=== PATIENT | female | born 1940 | race Caucasian/White ===

== ENCOUNTER → 2016-03-27 | Day surgery (SDC) | payer BC ==
[~2016-03-27] MED LIST: BUPIVACAINE 0.5% 30 ML VIAL ONE; CEFAZOLIN 1 GM VIAL ONE; DEXAMETHASONE 4 MG/ML VIAL IV ONE; FENTANYL 100 MCG/2 ML VIAL IV ONE; FENTANYL 100 MCG/2 ML VIAL IV PRN; HYDROmorphone 1 MG INJECTION IV PRN; LABETALOL 20 MG/4 ML SYRINGE IV PRN; LIDOCAINE 1% 10 ML (METHYLPARABEN FREE) ONE; LIDOCAINE 100 MG PFS IV ONE; MEPERIDINE 25 MG/ML TUBEX IV PRN; METOCLOPRAMIDE 10 MG/2 ML VIAL IV ONE; MIDAZOLAM 2 MG/2 ML VIAL IV ONE; ONDANSETRON HCL 4 MG ODT TAB PO PRN; ONDANSETRON HCL 4 MG/2 ML VIAL IV ONE; ONDANSETRON HCL 4 MG/2 ML VIAL IV PRN; PROMETHAZINE 25 MG/ML VIAL IV PRN; PROPOFOL 200 MG/20 ML VIAL IV ONE; SUCCINYLCHOLINE 20 MG/1 ML INJ 10 ML MDV IV ONE; Sodium Bicarbonate (Neut) 2.4 mEq/5 ml vial INF ONE; hydrALAZINE 20 MG/ML VIAL IV PRN
--- NOTE | 2016-03-27 07:09 | SC.ANESPOS ---
Post-Anesthesia Note LOC: [facility] Calling Post-Anesthesia Assessment: Awake, Returned to Baseline, Hemodynamically Stable , Pain Control Adequate Phase I & II Recovery Complete: Yes Apparent Anesthesia Complication: No : N PACU Discharge Time: 12:00 - Vital Signs Blood Pressure: 140/62 Pulse: 78 Resp Rate: 18 O2 Sat: 96 Temp: 96.5 F - Comments Anesthesia Discharge Time Report Time 12:00
--- NOTE | 2016-03-27 07:46 | HIM.ANES ---
Anesthesia Evaluation & Plan Diagnoses: NEOPLASM OF UNCERTAIN BEHAVIOR OF LEFT BREAST (03/27/16) Consented Procedure: LEFT NEEDLE LOCALIZED LUMPECTOMY X 2 - Focused Review of Systems Cardiac History: Yes: Hx Hypertension, Hx Heart Attack (1983/), Hx Cardiac Disorders, Hx Abnormal Cholesterol/Hyperlipidemia HEENT: Yes: Cataract Removal, Hx Vision Problem, Other HEENT Problems Hx Other HEENT Surgery: RT EYE SX TO REPAIR RETINA Gastrointestinal: Yes: Hx Gastroesophageal Reflux Disease (Controlled on RX), Hx Gastrointestinal Disorders, Hx Endoscopy (2012), Hx Esophageal Dilatation ( 2012) Neurological/Musculoskeletal: No: Hx Neurological Disorders Psychological: No Hx Mental/Emotional Disorders Endocrine: Yes: Hx Diet Controlled Diabetes (PRE DIABETIC) Blood/Autoimmune: Yes: Hx Anemia (LOW IRON LEVEL) No: Hx AIDS, Hx Hepatitis (type) Smoking Status: Former smoker Hx Stress Test (date): Yes (10/2015 EF 63% NO ISCHEMIA) Surgical History: Yes: Cholecystectomy (1983), Bladder Tact (01/2016) Other Surgical History: RT EYE SX TO REPAIR RETINA TOTAL HYSTERECTOMY 01/2016 WITH BLADDER TACT., BTL - Focused Physical Exam NPO since: 03/26/162099 Mallampati: Class III Thyromental Distance: Less than 3 Neck: Full Range of Motion Dental: Removable Dental Work Cardiovascular/Chest: Normal Respiratory: Lungs clear Any problems with anesthesia, including nausea and vomiting?: No Any relatives with a history of Malignant Hyperthermia?: No Beta Micha given (if appropriate): Yes Does the patient have a history of Motion Sickness-: No Other: Allergies Allergy/AdvReac Type Severity Reaction Status Date / Time amlodipine Allergy Edema-Gener Verified 03/27/16 07:14 alized Home Medications Medication Instructions Recorded Last Taken Type Carvedilol [Coreg] 12.5 mg PO BID 03/24/16 03/27/16 06:45 History Chlorthalidone 50 mg PO HS 03/24/16 03/26/16 22:00 History CloNIDine (Antihypertensive) 0.2 mg PO BID 03/24/16 03/27/16 06:45 History [Catapres] Docusate Sodium [Colace] 100 mg PO BID PRN 03/24/16 03/25/16 History Ferrous Sulfate [Iron] 325 mg PO DAILY 03/24/16 03/26/16 21:00 History HydrALAZINE (Cardiovascular) 50 mg PO TID 03/24/16 03/27/16 06:45 History [Apresoline] Omeprazole [Prilosec] 20 mg PO DAILY 03/24/16 03/27/16 06:45 History Pravastatin [Pravachol] 20 mg PO HS 03/24/16 03/26/16 21:00 History Height and Weight Patient's height 4 ft 7 in Patient's weight 110 lb Vital Signs Temperature 98.4 F 03/27/16 07:29 Pulse Rate 59 L 03/27/16 07:29 Respiratory Rate 18 03/27/16 07:29 Blood Pressure 172/55 L 03/27/16 07:29 Pulse Oxygen Saturation 96 03/27/16 07:29 - Anesthetic Plan Anesthesia Type: General, MAC ASA Class: 3 -: I have examined this patient and reviewed the medical record. The patient has been assessed prior to anesthesia. Risks and benefits of anesthesia and anesthetic technique options have been discussed and all questions answered. The patient accepts the risk and desires me to proceed with the planned anesthetic.
--- NOTE | 2016-03-27 10:55 | HIMOPRPT ---
DATE OF PROCEDURE: 03/27/16 PREOPERATIVE DIAGNOSIS: Intraductal papillary lesion left breast, left breast abnormality on mammogram POSTOPERATIVE DIAGNOSIS: Same, final pathology pending PROCEDURES: Left needle localized breast biopsy x2. SURGEON: Roosevelt Chapman MD ANESTHESIA: General. COMPLICATIONS: None. SPECIMENS: Left breast tissue x2 with localizing needles to Radiology, then Pathology. PACKINGS AND DRAINS: None. BLOOD LOSS: None. OPERATIVE FINDINGS AND TECHNIQUE: With consent, the patient was brought to the same-day Surgery Unit in [facility]. She underwent needle localization of the left breast biopsy-proven intraductal papillary lesion as well as a separate lesion which was a mammographic abnormality which was not biopsied. Decision was made preoperatively to surgically excise both of these lesions. This was performed by Dr. Gayle. The patient was then taken back to the operative suite and underwent general anesthesia. The left breast was then prepped and draped in usual fashion. A curvilinear incision was made in the superomedial circumareolar portion the left breast. Dissection was carried down through subcutaneous tissue. The more lateral wire had come through the skin. The area of breast tissue immediately deep to this was excised and marked with an anatomic orientation sutures and passed off as specimen. Following this more medial dissection was undertaken to excise the area surrounding the medial localizing wire. Subcutaneous tissues were dissected and deeper tissues were dissected as well. A generous portion of the medial portion of the left breast was taken out with the localizing wire. The 2nd specimen was excised and marked with anatomic orientation sutures and passed off for radiographic imaging. Dr. Gayle performed image of specimen radiograph of both lesions, and this showed the specimens contained the resected specimen, the mammographic abnormality, the clip in the 1st lesion, and localizing wire. The specimens were then passed off for pathologic characterization. Wound was irrigated and dried. Deep, subcutaneous, and subcuticular tissues were injected with 0.5% Marcaine. Skin approximation was accomplished using 4-0 Monocryl in subcuticular fashion. Dermabond 2 x 2 gauze, and Tegaderm dressings were applied to the wound. The patient tolerated the procedure well, with the findings as described. At termination of the procedure , all instrument, sponge, and needle counts were correct
--- NOTE | 2016-03-27 10:56 | DIRPT ---
CLINICAL DATA: 75-year-old female with inner left breast mass and left breast papilloma. For localization of inner left breast mass prior to surgical excision. EXAM: NEEDLE LOCALIZATION OF THE LEFT BREAST WITH MAMMO GUIDANCE COMPARISON: Previous exams. FINDINGS: Patient presents for needle localization prior to surgical excision. I met with the patient and we discussed the procedure of needle localization including benefits and alternatives. We discussed the high likelihood of a successful procedure. We discussed the risks of the procedure, including infection, bleeding, tissue injury, and further surgery. Informed, written consent was given. The usual time-out protocol was performed immediately prior to the procedure. Using mammographic guidance, sterile technique, 1% lidocaine and a 10 cm modified Kopans needle, the mass in the inner right breast was localized using superior approach. The images were marked for Dr. Chapman. IMPRESSION: Needle localization left breast. No apparent complications. Electronically Signed By: Ramo Gayle M.D. On: 03/27/2016 10:54
--- NOTE | 2016-03-27 10:58 | DIRPT ---
CLINICAL DATA: 75-year-old female -evaluate surgical specimens following excision of left breast papilloma and indeterminate mass in the inner left breast. EXAM: SPECIMEN RADIOGRAPH OF THE LEFT BREAST X 2 COMPARISON: Previous exam(s). FINDINGS: Status post excision of the left breast. In the first specimen, the wire tip and biopsy marker clip are present and are marked for pathology. In the second specimen, the wire tip and mass are present. IMPRESSION: Specimen radiographs of the left breast. Electronically Signed By: Ramo Gayle M.D. On: 03/27/2016 10:56
[2016-03-27 13:27] VITALS: TEMP 96.5
[2016-03-27 13:29] VITALS: PULSE 78
[2016-03-27 14:52] VITALS: BP 140/62
== END ==
LOC: SDC 06:36 → EDSTATUS 12:15
PROVIDERS: ATTEND Surgery Vascular Surgery
PROC: 0HBU0ZZ Excision of Left Breast, Open Approach (ICD-10-PCS; principal; 2016-03-27 09:15)
DX: N60.92 Unspecified benign mammary dysplasia of left breast (principal); I10 Essential (primary) hypertension; I25.2 Old myocardial infarction; E78.5 Hyperlipidemia, unspecified; K21.9 Gastro-esophageal reflux disease without esophagitis; E11.9 Type 2 diabetes mellitus without complications; Z87.891 Personal history of nicotine dependence; Z79.899 Other long term (current) drug therapy
CPT/HCPCS: 19125; 19126; 19281; 19282; 76098; J0690; J3490; J0330; J1100; J2001; J2250; J2405; J2765; J3010